=== PATIENT | female | born 1980 | race Caucasian/White ===

== ENCOUNTER 2023-08-05 04:39 | Day surgery (SDC) | payer OTHER ==
[2023-07-28 14:31] VITALS: BMI 26.7
[2023-08-05] MEDS ORDERED: CEFAZOLIN 2 GM in DEXTROSE 5%-WATER - 100 ML IVPB ONE (08:52)
[2023-08-05] MEDS ORDERED: ceFAZolin SODIUM 1 GM VIAL ONE ×2 (08:54→12:04)
[2023-08-05] MEDS ORDERED: ACETAMINOPHEN 500 MG TABLET (FP) ONE (08:54)
[2023-08-05] MEDS: ACETAMINOPHEN 500 MG TABLET (FP) PO ONE (09:08)
[2023-08-05] MEDS ORDERED: INDOCYANINE GREEN 25 MG/10 ML VIAL IVPUSH ONE (09:23)
[2023-08-05] MEDS ORDERED: BUPIVACAINE HCL/PF 0.5% (5MG/ML) 10 ML VIAL ONE (09:23)
[2023-08-05] MEDS ORDERED: LIDOCAINE 1%/EPI 1:100000 (20 ML MULTI DOSE VIAL) ONE (09:23)
[2023-08-05] MEDS ORDERED: PROPOFOL 20 ML ONE (10:50)
[2023-08-05] MEDS ORDERED: MIDAZOLAM HCL 2 MG/2 ML SINGLE DOSE VIAL ONE (10:51)
[2023-08-05] MEDS ORDERED: LIDOCAINE HCL/PF 2% SDV 5ML VIAL ONE (10:52)
[2023-08-05] MEDS ORDERED: ONDANSETRON 4 MG/2 ML VIAL ONE ×2 (10:52→16:50)
[2023-08-05] MEDS ORDERED: DEXAMETHASONE SOD PHOSPHATE 4 MG/1 ML VIAL ONE (10:52)
[2023-08-05] MEDS ORDERED: ROCURONIUM BROMIDE 50 MG/5 ML SYRINGE ONE ×2 (10:52→12:59)
[2023-08-05] MEDS ORDERED: oxyCODONE HCL 5 MG TABLET PO PRN ×2 (11:24)
[2023-08-05] MEDS ORDERED: LACTATED RINGERS SOLUTION 1,000 ML IV SCH (11:30)
[2023-08-05] MEDS: ceFAZolin SODIUM 1 GM VIAL IVPB ONE (12:05)
[2023-08-05] MEDS: BUPIVACAINE HCL/PF 0.5% (5MG/ML) 10 ML VIAL IJ ONE ×2 (12:11)
[2023-08-05] MEDS ORDERED: HYDROmorphone HCl 2 MG/ML VIAL ONE (12:32)
[2023-08-05] MEDS ORDERED: SUGAMMADEX SODIUM 200 MG/2 ML VIAL ONE (12:57)
[2023-08-05] MEDS ORDERED: KETOROLAC TROMETHAMINE 30 MG/1 ML VIAL ONE (12:57)
[2023-08-05] MEDS ORDERED: ACETAMINOPHEN INJECTION 100 ML IVPB ONE (13:04)
[2023-08-05] MEDS: ONDANSETRON 4 MG/2 ML VIAL IVPUSH PRN (16:54)
[2023-08-05 18:11] VITALS: BP 124/78; PULSE 86; RESP 18; TEMP 97.8
== END 2023-08-05 18:17 | disposition home or self-care (01) ==
LOC: JASU-SURG 04:39
PROVIDERS: ATTEND Obstetrics & Gynecology Gynecologic Oncology
PROC: 0UT7FZZ Resection of Bilateral Fallopian Tubes, Via Natural or Artificial Opening With Percutaneous Endoscopic Assistance (ICD-10-PCS; 2023-08-05)
PROC: 8E0W4CZ Robotic Assisted Procedure of Trunk Region, Percutaneous Endoscopic Approach (ICD-10-PCS; 2023-08-05)
PROC: 0UT9FZZ Resection of Uterus, Via Natural or Artificial Opening With Percutaneous Endoscopic Assistance (ICD-10-PCS; principal; 2023-08-05 11:00)
DX: N92.0 Excessive and frequent menstruation with regular cycle (principal); N94.6 Dysmenorrhea, unspecified; N80.03 Adenomyosis of the uterus; D25.9 Leiomyoma of uterus, unspecified; N94.89 Other specified conditions associated with female genital organs and menstrual cycle; N72 Inflammatory disease of cervix uteri
CPT/HCPCS: 58552; S2900; 81025; 86850; 86900; 86901; 88305-TC; 88341-TC; 88342-TC; 94760; J0131